=== PATIENT | female | born 1950 | race Two or more races ===

== ENCOUNTER 2019-03-11 11:25 | Inpatient (IN) | payer OTHER ==
[~2019-03-11] VITALS: Ht 152.4 cm; Wt 84.1 kg
[2019-03-11 12:20] LABS: Basophils # (auto) 0.1 uL; Basophils % (auto) 0.8 % (0.0-2.0); Eosinophils # (auto) 0.1 uL; Eosinophils % (auto) 1.5 % (0.0-7.0); Hematocrit 43.9 % (36.0-46.0); Hemoglobin 14.6 g/dL (12.2-16.2); Lymphocytes # (auto) 0.8 uL; Lymphocytes % (auto) 7.7 % (10.0-50.0); Mean Corpuscular Hemoglobin 30.3 pg (28.0-32.0); Mean Corpuscular Hgb Conc. 33.2 g/dL (32.0-36.0); Mean Corpuscular Volume 91.2 fL (80.0-100.0); Monocytes # (auto) 0.8 uL; Monocytes % (auto) 7.6 % (0.0-12.0); Neutrophils # (auto) 8.3 uL; Neutrophils % (auto) 82.4 % (37.0-80.0); Platelet Count (auto) 209 10^3/uL (140-450); Red Blood Cells 4.82 10^6/uL (4.0-5.20); Red Cell Distribution Width 15.2 % (11.8-14.3)
[2019-03-11 12:42] LABS: Albumin 3.7 g/dL (3.4-5.0); Calcium 8.5 mg/dL (8.5-10.1); Potassium 3.5 mmol/L (3.5-5.1)
[2019-03-11 12:44] LABS: BUN/Creatinine Ratio 12.8
[2019-03-11 12:45] LABS: INR < 0.93 (0.9-1.15); Partial Thromboplastin Time 24.5 sec (23.64-32.05)
[2019-03-11 12:49] LABS: Bilirubin, Total 0.9 mg/dL (0.2-1.0); Total Protein 7.6 g/dL (6.4-8.2)
[2019-03-11] MEDS ORDERED: PANTOPRAZOLE 40 MG TAB PO ONE (13:15)
[2019-03-11] MEDS ORDERED: IOHEXOL 350 MG/ML 100ML IJ ONE (14:37)
[2019-03-11] MEDS ORDERED: SODIUM CHLORIDE 0.9% 500 ML IV ONE (14:45)
[2019-03-11] MEDS ORDERED: ACETAMINOPHEN 500 MG TAB PO PRN (19:00)
[2019-03-11] MEDS ORDERED: HYDROcodone-ACET 5/325MG TAB PO PRN (19:00)
[2019-03-11] MEDS ORDERED: NITROGLYCERIN 0.4 MG SL TAB SL PRN (19:00)
[2019-03-11] MEDS ORDERED: ASPirin 81 mg TAB PO ONE (19:00)
[2019-03-11] MEDS ORDERED: ONDANSETRON HCL 4 MG/2 ML VIAL IV PRN (19:00)
[2019-03-11] MEDS ORDERED: MORPHINE SULF INJ 2 MG/ML SYRINGE 1ML IV PRN ×2 (19:00)
[2019-03-11 19:38] LABS: CRP High Sensitivity 0.64 mg/dL (< 0.3)
[2019-03-11] MEDS: ENOXAPARIN SOD 80 MG/0.8ML SYRINGE SC SCH (20:58)
[2019-03-11 22:40] VITALS: BP 146/68
[2019-03-11] MEDS ORDERED: POTA10TA75 PO (23:02)
[2019-03-11] MEDS ORDERED: ATOR10TA52 PO (23:02)
[2019-03-11] MEDS ORDERED: ASPI-231 PO (23:02)
[2019-03-11] MEDS ORDERED: HYDR50TA15 PO (23:02)
[2019-03-11] MEDS ORDERED: METO25TA5 PO (23:02)
[2019-03-11] MEDS ORDERED: OMEG100078 PO (23:02)
[2019-03-11] MEDS ORDERED: BENA40TA7 PO (23:02)
[2019-03-11] MEDS ORDERED: FURO1TAB33 PO (23:02)
[2019-03-11] MEDS: ATORVASTATIN 20 MG TAB PO SCH (23:15)
[2019-03-11] MEDS: DOCUSATE SOD 100 MG CAP PO SCH (23:15)
[2019-03-11] MEDS: METOPROLOL TARTRATE 25 MG TAB PO SCH (23:16)
--- NOTE | 2019-03-11 23:18 | NUR ---
Telemetry admit from ER ENMANUEL DIAMOND admitted to Telemetry unit. Patient oriented to DILSHAD BRUSH, memo RN, unit, room, bed, and unit policies regarding patient care and visiting hours. Patient now on continuous telemetry monitoring, tele box #[id number] and telemetry reading on arrival to unit is NSR . Patient weighed by bed scale and encouraged to call if they need something. All questions and concerns addressed, patient verbalized understanding. Note: Call wilkins with in reach, bed in low position. Denies chest pain at this time.
[2019-03-11 23:51] VITALS: BP 146/68
[2019-03-12 02:35] LABS: Urine WBC None Seen /hpf (0 - 5)
[2019-03-12 02:51] LABS: Urine Bacteria NONE SEEN /hpf (None Seen); Urine Blood Negative /uL (Negative); Urine Specific Gravity 1.006 (1.001-1.035)
[2019-03-12 05:51] VITALS: BP 160/79
[2019-03-12] MEDS: ENOXAPARIN SOD 80 MG/0.8ML SYRINGE SC SCH (06:52)
[2019-03-12 09:00] VITALS: BP 138/82
[2019-03-12 09:56] LABS: Basophils # (auto) 0.1 uL; Basophils % (auto) 1.5 % (0.0-2.0); Eosinophils # (auto) 0.2 uL; Eosinophils % (auto) 5.2 % (0.0-7.0); Hematocrit 37.8 % (36.0-46.0); Hemoglobin 12.6 g/dL (12.2-16.2); Lymphocytes # (auto) 0.9 uL; Lymphocytes % (auto) 19.4 % (10.0-50.0); Mean Corpuscular Hemoglobin 30.4 pg (28.0-32.0); Mean Corpuscular Hgb Conc. 33.4 g/dL (32.0-36.0); Monocytes # (auto) 0.5 uL; Neutrophils % (auto) 62.9 % (37.0-80.0); Nucleated Red Blood Cells % 0.1 %; Platelet Count (auto) 160 10^3/uL (140-450); Red Blood Cells 4.15 10^6/uL (4.0-5.20); Red Cell Distribution Width 14.7 % (11.8-14.3); White Blood Cell 4.7 10^3/uL (4.4-10.8)
[2019-03-12] MEDS ORDERED: LISINOPRIL 10 MG TAB PO SCH (10:00)
[2019-03-12] MEDS: DOCUSATE SOD 100 MG CAP PO SCH ×3 (10:00→20:41)
[2019-03-12 10:11] LABS: INR 0.95 (0.9-1.15); Partial Thromboplastin Time 37.1 sec (23.64-32.05)
[2019-03-12 10:24] LABS: BUN/Creatinine Ratio 12.1; Calcium 7.8 mg/dL (8.5-10.1); Potassium 3.4 mmol/L (3.5-5.1)
--- NOTE | 2019-03-12 10:50 | NUR ---
Tahmina Santos at bedside. Family member at bedside.
[2019-03-12] MEDS: FAMOTIDINE 20 MG TAB PO SCH (10:53)
[2019-03-12] MEDS: ASPirin-EC 81 mg tab PO SCH (10:54)
[2019-03-12] MEDS: METOPROLOL TARTRATE 25 MG TAB PO SCH ×2 (10:55→20:41)
[2019-03-12] MEDS: NITROGLYCERIN 0.4MG/HR TOPICAL PATCH TD SCH (10:55)
[2019-03-12] MEDS: hydrALAZINE HCL 20 MG/ML VL IV PRN ×2 (12:47→20:37)
--- NOTE | 2019-03-12 12:47 | NUR ---
BP = 186/82, Heart rate = 65. Apresoline Inj 10 mg given for SBP>150.
[2019-03-12 13:00] VITALS: BP 186/82
--- NOTE | 2019-03-12 13:28 | NUR ---
Coil Taper Ashli of [facility] called back. Ashli asked to speak with the Coil Taper. Informed Ashli the Vineyard Worker are only certified professional ergonomist during weekends, they come back tomorrow, Wednesday. Ashli said she will call again tomorrow to follow up on the patient.
--- NOTE | 2019-03-12 16:28 | NUR ---
BP = 147/78, Heart rate = 65.
[2019-03-12 16:38] VITALS: BP 147/70
--- NOTE | 2019-03-12 17:30 | NUR ---
Family at bedside.
[2019-03-12] MEDS ORDERED: ENOXAPARIN SOD 80 MG/0.8ML SYRINGE SC SCH (18:00)
--- NOTE | 2019-03-12 18:52 | NUR ---
Patient stated her headache at 310 at this time, requested for Lawrence. Lawrence 5/325 given for headache. Daughter at bedside.
--- NOTE | 2019-03-12 19:22 | NUR ---
RECEIVED PATIENT RESTING IN BED, NO S/SX OF DISTRESS NOTED, DENIES CHEST PAIN, STILL HAS HEADACHE, MEDICATED BY AM NURSE. FAMILY AT BEDSIDE. CALL PRADO WITH IN REACH, BED IN LOW POSITION.
[2019-03-12] MEDS: ATORVASTATIN 20 MG TAB PO SCH (20:40)
[2019-03-12 22:00] VITALS: BP 163/74
[2019-03-13] VITALS (7 sets, daily range): BP systolic 154–184; BP diastolic 66–88
[2019-03-13] MEDS: hydrALAZINE HCL 20 MG/ML VL IV PRN (04:44)
--- NOTE | 2019-03-13 08:00 | NUR ---
Transferred patient via bed to [facility] for cardiac cath as per Dr. Greer. Patient awake, oriented x4, no acute distress noted. IV line intact and patent. Endorsed patient to [facility] DANIELA Cates.
--- NOTE | 2019-03-13 09:00 | NUR ---
PATIENT WAS IN A PROCEDURE DURING 0900 VITALS. OBTAINED POST PROCEDURE VITALS AT 1100.
[2019-03-13] MEDS ORDERED: LIDOCAINE 2%HCL (LOCAL ANESTH.) INJ 20ML MDV ONE (09:14)
[2019-03-13] MEDS ORDERED: SODIUM CHL 0.9% 0 ML ONE (09:26)
[2019-03-13] MEDS ORDERED: MIDAZOLAM HCL 1MG/1ML-2 ML VIAL ONE (09:26)
[2019-03-13] MEDS ORDERED: fentaNYL CITRATE 100 MCG/2 ML VL ONE (09:26)
[2019-03-13] MEDS ORDERED: ANGIOMAX 250 MG VIAL IV ONE (09:26)
[2019-03-13] MEDS ORDERED: VERAPAMIL 2.5MG/ML INJ 2ML VIAL IV ONE (09:26)
[2019-03-13] MEDS ORDERED: NITROGLYCERIN 5MG/ML 10ML VIAL IV ONE (09:27)
[2019-03-13] MEDS ORDERED: SODIUM CHL 0.9% 50 ML ONE (09:27)
[2019-03-13] MEDS ORDERED: IODIXANOL 320MG/ML 100ML BTL IV ONE (09:39)
[2019-03-13] MEDS ORDERED: HEPARIN SODIUM (PORCINE) 5000 UNITS/ML 1ML VIAL ONE (09:53)
[2019-03-13] MEDS ORDERED: NITROGLYCERIN 0.4MG/DOSE SPRAY 4.9GM ONE (09:53)
[2019-03-13] MEDS: NITROGLYCERIN 0.4MG/HR TOPICAL PATCH TD SCH (10:00)
[2019-03-13] MEDS ORDERED: LISINOPRIL 10 MG TAB PO SCH (10:15)
--- NOTE | 2019-03-13 11:20 | NUR ---
Patient back to room from Analytics Lead post left heart cath (negative as per Analytics Lead), resume the medications as ordered fo4 1000 am. About 2 ml of air removed from the left wrist Vasc band. Patient on the bedside commode at this time.
--- NOTE | 2019-03-13 11:29 | NUR ---
Dr. Hurd, Tahmina at bedside. made aware the left heart cath is negative as per Ulises Saleh Tow Motor Mechanic called yesterday, (Wednesday) to follow up on the patient. Dr. Hurd spoke with the patient, he will put in discharge orders and write prescription.
--- NOTE | 2019-03-13 11:30 | NUR ---
Patient has a left wrist Vasc band (left heart cath access). Patient stated her ride home will be available around 4:[address] Hurd ordered to discharge the patient at 4:00 pm today.
[2019-03-13] MEDS: METOPROLOL TARTRATE 25 MG TAB PO SCH (11:55)
[2019-03-13] MEDS: FAMOTIDINE 20 MG TAB PO SCH (11:55)
[2019-03-13] MEDS: ASPirin-EC 81 mg tab PO SCH (11:55)
[2019-03-13] MEDS: DOCUSATE SOD 100 MG CAP PO SCH (11:56)
--- NOTE | 2019-03-13 11:58 | NUR ---
Patient refused Nitroglycerin Transdermal patch, stated it gives her "awful headache."
--- NOTE | 2019-03-13 12:37 | NUR ---
1230 03/13/19 Contacted [employer] Operator Marya at [facility] and requested that authorization be provided for continued stay. Per Marya, she is still reviewing the clinical information I sent for today and yesterday and will give me a call back regarding the decision on authorization.
--- NOTE | 2019-03-13 12:48 | NUR ---
Paged Sleep Technologist Brianna John.
--- NOTE | 2019-03-13 13:10 | NUR ---
About 2 ml of air removed from the Vasc band on left wrist. No active bleeding noted.
--- NOTE | 2019-03-13 13:35 | NUR ---
Paged [employer] Points Inspector Brianna John again.
--- NOTE | 2019-03-13 16:30 | NUR ---
BP = 139/74, Heart rate = 65.
--- NOTE | 2019-03-13 16:40 | NUR ---
Friend at bedside.
--- NOTE | 2019-03-13 16:50 | NUR ---
Vasc band deflated on the left wrist. No bleeding noted. Band aid applied.
--- NOTE | 2019-03-13 17:10 | NUR ---
Discharge instructions given as ordered. Encourage to follow up with PMD as instructed. All questions and concerns addressed. Patient verbalized understanding. Medication reconciliation form completed and copy given to patient. IV removed with catheter intact, pressure dressing applied. Telemetry unit returned to ICU. Patient taken to vehicle via wheelchair with all personal belongings, accompanied by staff and friend. No distress noted at time of departure.
== END 2019-03-13 17:05 | disposition home or self-care (01) | DRG 280 ==
LOC: EDBD 11:25 → ER 11:30 → TELE 11:31 → TELE-WESTW 23:10
PROVIDERS: ADMIT Nurse Practitioner Acute Care; ATTEND Family Medicine
PROC: B211YZZ Fluoroscopy of Multiple Coronary Arteries using Other Contrast (ICD-10-PCS; principal; 2019-03-13)
DX: I21.4 Non-ST elevation (NSTEMI) myocardial infarction (principal); I50.41 Acute combined systolic (congestive) and diastolic (congestive) heart failure; I13.0 Hypertensive heart and chronic kidney disease with heart failure and stage 1 through stage 4 chronic kidney disease, or unspecified chronic kidney disease; I25.10 Atherosclerotic heart disease of native coronary artery without angina pectoris; E78.5 Hyperlipidemia, unspecified; E78.00 Pure hypercholesterolemia, unspecified; K80.20 Calculus of gallbladder without cholecystitis without obstruction; E66.9 Obesity, unspecified; F41.9 Anxiety disorder, unspecified; K21.9 Gastro-esophageal reflux disease without esophagitis; I25.2 Old myocardial infarction; N18.3 Chronic kidney disease, stage 3 (moderate); Z90.49 Acquired absence of other specified parts of digestive tract; Z88.8 Allergy status to other drugs, medicaments and biological substances; Z98.51 Tubal ligation status; Z83.3 Family history of diabetes mellitus; Z82.49 Family history of ischemic heart disease and other diseases of the circulatory system; Z87.891 Personal history of nicotine dependence; Z79.82 Long term (current) use of aspirin; Z79.899 Other long term (current) drug therapy; Z90.89 Acquired absence of other organs; Z82.3 Family history of stroke; Z68.36 Body mass index [BMI] 36.0-36.9, adult
CPT/HCPCS: 36415; 70450; 71045; 71046; 71275; 80048; 80053; 80061; 81001; 83036; 83735; 83880; 84443; 84484; 85025; 85379; 85610; 85730; 86141; 93005; 93306; 93454; 93970; 94761; 96360; G0378; J2250; J3490; Q9967